=== PATIENT | female | born 1955 | race Asian ===

== ENCOUNTER 2016-10-21 09:51 | Emergency (ER) | payer OTHER, BC ==
[~2016-10-21 09:51] MED LIST: ASPIR-LOW81 M1 PO; BRINTELLIX10 M1 PO; CRESTOR10 MG/TAB PO; LISINOPRIL-HCT1 EAC3 PO; NITROGLYCERIN0.4 M2 SL; PRINIVIL10 M1 PO; PRINIVIL20 M1 PO; STOP THE FOLLOWING; TOPROL XL25 M1 PO
[2016-10-21] MEDS ORDERED: ATORVASTATIN CA20 M1 PO (10:07)
[2016-10-21] MEDS ORDERED: LISINOPRIL-HCT1 EAC1 PO (10:08)
[2016-10-21] MEDS ORDERED: SERTRALINE HCL50 M4 PO (10:09)
[2016-10-21] MEDS ORDERED: CYCLOBENZAPRINE5 M1 PO (10:52)
[2016-10-21] MEDS ORDERED: NAPROSYN500 M1 PO (10:52)
== END 2016-10-21 11:00 ==
LOC: EDMED 09:51
DX: S16.1XXA Strain of muscle, fascia and tendon at neck level, initial encounter (principal); I10 Essential (primary) hypertension; E78.5 Hyperlipidemia, unspecified; F17.210 Nicotine dependence, cigarettes, uncomplicated; V89.2XXA Person injured in unspecified motor-vehicle accident, traffic, initial encounter; Y92.410 Unspecified street and highway as the place of occurrence of the external cause

== ENCOUNTER 2016-12-16 09:57 | Observation (INO) | payer BC ==
[~2016-12-16 09:57] MED LIST changes: +ATORVASTATIN CA20 M1 PO; +CYCLOBENZAPRINE5 M1 PO; +LISINOPRIL-HCT1 EAC1 PO; +NAPROSYN500 M1 PO; +SERTRALINE HCL50 M4 PO
[2016-12-16 10:25] LABS: BASO % 1.6 % (0-2); BASO ABSOLUTE COUNT 0.1 tho/cmm (0.0-0.2); EOS % 4.3 % (0-7); EOSINOPHIL ABSOLUTE COUNT 0.3 tho/cmm (0.0-0.7); HCT-HEMATOCRIT 48.4 % (34.0-49.0); HGB-HEMOGLOBIN 16.7 gm/dl (12.0-15.5); IMMATURE GRANULOCYTES ABSOLUTE 0.01 tho/cmm (0-0.03); IMMATURE GRANULOCYTES PERCENT 0.2 % (0-0.3); LYMPH % 31.8 % (20-45); LYMPH ABSOLUTE COUNT 1.8 tho/cmm (0.8-4.5); MCH (MEAN CORPUSCULAR HGB) 29.3 pg (28.0-32.0); MCHC MEAN CORPUSCULAR HGB CONC 34.5 % (32.0-36.0); MCV (MEAN CELL VOLUME) 85.1 fl (82.0-96.0); MEAN PLATELET VOLUME 9.7 cmc (9.4-12.4); MONO % 8.8 % (0-12); MONOCYTE ABSOLUTE COUNT 0.5 tho/cmm (0.0-1.2); NEUTROPHIL ABSOLUTE COUNT 3.1 tho/cmm (1.6-8.0); NEUTROPHIL-AUTOMATED 3.1 tho/cmm (1.6-8.0); NEUTROPHILS % 53.3 % (40-80); PLATELET COUNT 280 tho/cmm (150-450); RED BLOOD COUNT 5.69 mil/cmm (4.00-5.20); RED CELL DISTRIBUTION WIDTH 13.1 % (12.4-16.4); WHITE BLOOD COUNT 5.8 tho/cmm (4.0-10.0)
[2016-12-16 11:35] LABS: ANION GAP 12 mmol/L (0-20); BLOOD UREA NITROGEN 14 mg/dl (6-24); CALCIUM 8.8 mg/dl (8.5-10.5); CARBON DIOXIDE-VENOUS 28 mmol/L (22-32); CHLORIDE 108 mmol/l (96-110); GLUCOSE 106 mg/dL (70-110); POTASSIUM 3.9 mmol/L (3.7-5.1); SODIUM 144 mmol/L (135-145); eGFR VALUE FOR BLACK >90 mL/Min
[2016-12-16] MEDS ORDERED: VIIBRYD20 M1 PO (11:44)
== END 2016-12-16 18:45 ==
LOC: EDMED 09:57 → EMR2 12:51 → CAR1 13:30
PROVIDERS: Emergency Medicine; ADMIT Internal Medicine Cardiovascular Disease
PROC: 4A023N7 Measurement of Cardiac Sampling and Pressure, Left Heart, Percutaneous Approach (ICD-10-PCS; principal; 2016-12-16)
DX: I20.0 Unstable angina (principal); I10 Essential (primary) hypertension; E78.5 Hyperlipidemia, unspecified; G47.33 Obstructive sleep apnea (adult) (pediatric); F17.210 Nicotine dependence, cigarettes, uncomplicated; Z82.49 Family history of ischemic heart disease and other diseases of the circulatory system
CPT/HCPCS: C1894; G0378; J1644; J7030; Q9967